=== PATIENT | male | born 1990 | race Caucasian/White ===

== ENCOUNTER 2024-07-05 00:05 | Emergency (ER) | payer SELFPAY ==
[2024-07-05 00:07] VITALS: BP 141/83; PULSE 85; RESP 18; TEMP 36.2; O2SAT 97; BMI 35.2
--- NOTE | 2024-07-05 00:38 | EKG12_ITS ---
Test Reason : DYSRHYTHMIA Blood Pressure : */* mmHG Vent. Rate : 77 BPM Atrial Rate : 77 BPM P-R Int : 188 ms QRS Dur : 108 ms QT Int : 366 ms P-R-T Axes : 50 35 17 degrees QTcB Int : 414 ms Normal sinus rhythm Normal ECG Confirmed by Adonis Pagan ([id number]), script editor YVONNE GHOTRA ([id number]) on 07/06/2024 10:21:44 AM Referred By: Confirmed By: Adonis Pagan
--- NOTE | 2024-07-05 00:38 | CT_ITS ---
PROCEDURE: SINUS/FACIAL BONE REASON FOR EXAM: Question nasal fracture TECHNIQUE: CT of the paranasal sinuses without contrast. COMPARISON: None. FINDINGS: Frontal: Frontal sinuses and frontoethmoidal recesses appear clear. Ethmoid: Thickening Sphenoid: Sphenoid sinuses and sphenoethmoidal recesses appear clear. Maxillary: Maxillary sinuses appear clear. The ostiomeatal units appear widely patent. Turbinates: Thickening of the nasal turbinates Nasal bone and septum: Nondisplaced fracture of the nasal bone with rightward deviation of the septum. Mastoids/Middle Ears: Clear at visualized levels. Visualized intracranial structures are unremarkable. CT/Sinus/Facial Bone IMPRESSION: 1. Nondisplaced fracture of the nasal bone 2. Mild thickening of the ethmoid air cells and nasal turbinates One or more dose reduction techniques were used (e.g., Automated exposure contr ol, adjustment of the mA and/or kV according to patient size, use of iterative reconstruction technique). Reading Location: [facility]
--- NOTE | 2024-07-05 03:28 | EDS_ITS ---
HPI History of Present Illness Chief Complaint: Other, Pain/Inj Informant: patient Narrative Narrative: Patient is a 34-year-old male who reports a past medical history of anxiety and depression as well as ADHD. He states that he was recently diagnosed with walk ing pneumonia. He states he had a coughing spell this evening which caused him to blackout and he fell forward striking his face. He states he had mild bleeding from his nose following the injury and has soft tissue swelling and concern for nasal fracture and therefore comes in for evaluation. [facility] Medical History (Updated 07/10/24 @ 05:[address] Alejandro Kaur, DO) Nicotine dependence ADHD Anxiety Depression Drug addiction Home Medications ?Medication ?Instructions ?Recorded ?Last Taken ?Type sulfamethoxazole 800 1 tab PO BID ##28 07/30/13 U nknown Rx mg-trimethoprim 160 mg tablet azithromycin 250 mg tablet See Rx Instructions PO .COM PLEX #6 07/05/24 Unknown Rx (Zithromax Z-Rohit) tabs escitalopram oxalate 20 mg tablet 10 mg PO DAILY 07/05 Unknown History (Lexapro) trazodone 50 mg tablet 50 mg PO QHS 07/05/24 Unknow n History Allergy/AdvReac Type Severity Reaction Status Date / Time No Known Allergies Allergy Verified 07/05/24 00:06 Surgical History (Updated 07/05/24 @ 00:17 by Cathleen Pizarro) History of back surgery History of surgery on arm Social History Smoking Status: Current every day smoker tobacco type: e-cigarettes ROS ROS ED Constitutional Constitutional ED: Denies chills or fever(s) Eyes Eyes: Denies blurry vision or change in vision ENT ENT ED: Reports rhinorrhea and other Details: Positive epistaxis ; Denies sore throat Cardiovascular Cardiovascular: Reports other Details: Positive syncope ; Denies chest pain Respiratory/Chest Respiratory/Chest: Reports cough; Denies dyspnea Gastrointestinal Gastrointestinal: Denies abdominal pain, diarrhea, nausea or vomiting Genitourinary Genitourinary ED: Denies dysuria Musculoskeletal Musculoskeletal: Denies neck pain Integumentary Denies Abrasions or rash Neurologic Neurologic: Denies headache(s) Psychiatric Psychiatric: Reports anxiety and depression Hematologic/Lymphatic Hematologic/Lymphatic: Denies easy bleeding or easy bruising Allergic/Immunologic Allergic/Immunologic ED: Denies mouth swelling or tongue swelling EXAM Physical Exam Const Vital Signs: 07/05/24 00:07 07/05/24 00:13 Temperature 97.1 F L Temperature Source Temporal Pulse Rate 85 Respiratory Rate 18 Respiratory Effort Normal Non-Labored Respiratory Pattern Normal Blood Pressure 141/83 H Blood Pressure Mean 102 Pulse Ox 97 Oxygen Delivery Method Room Air Positive well nourished and well developed General Appearance ED: well developed HEENT HEENT Narrative: There is soft tissue swelling to the anterior aspect of the nasal bridge. There is mild ecchymosis at the site as well consistent with history of trauma. There is dried blood along the right nare without active bleeding noted. No septal hematoma present. No signs of depressed or basilar skull fracture Eyes PERRL and EOMs intact bilaterally Eyes Narrative: No hyphema Neck supple Neck Narrative: No bony deformity or step-off of the cervical spine no midline tenderness to palpation Resp normal respiratory effort and clear to auscultation bilaterally Resp Narrative: No nasal flaring retractions tachypnea or accessory muscle use Cardio regular rate and regular rhythm Back/Spine Back/Spine Narrative: No bony deformity or step-off of the thoracic or lumbar spine no midline tenderness to palpation Extremity normal to inspection Neuro oriented x3, CN's II-XII intact bilaterally and no sensory deficits noted Sensorium / Orientation: alert Motor Exam: strength 5/5 throughout Psych mental status grossly normal Skin no rashes or lesions noted Skin Narrative: Soft tissue swelling ecchymosis to the bridge of the nose as documented above MDM MDM MDM Narrative Medical decision making narrative: Patient arrived to the ER with stable vitals and reported a recent diagnosis of walking pneumonia. He reported cough induced syncope which is a common side effect of aggressive coughing and therefore do not feel the need for a cardiac or syncope workup with blood work but only need for EKG to document no signs of ACS or cardiac dysrhythmia. With main concern for potential nasal fracture versus contusion is CT of the face was obtained. As he is neurologically intact without signs of depressed or basilar skull fracture I have low concern for a traumatic subarachnoid or subdural hemorrhage or skull fracture so I felt no need for head CT. The patient's EKG revealed sinus rhythm and CT scan did show nasal fracture but this is nondisplaced and closed and therefore there is no need for emergent maxillofacial or ENT consultation. Therefore patient can follow-up as an outpatient to discuss any need for potential surgical fixation but at this time is otherwise safe for discharge History & Record Review Discussion w/independent historian: Patient Radiography Diagnostic Testing: Clinical Impression(s) from Imaging Studies Facial/Sinus 07/05/24 00:38 IMPRESSION: 1. Nondisplaced fracture of the nasal bone 2. Mild thickening of the ethmoid air cells and nasal turbinates One or more dose reduction techniques were used (e.g., Automated exposure control, adjustment of the mA and/or kV according to patient size, use of iterative reconstruction technique). Reading Location: [facility] Discharge Plan Triage Chief Complaint: Other, Pain/Inj ED Provider: Alejandro Kaur Dx/Rx/DC Orders Clinical Impression: Walking pneumonia, Closed fracture nasal bone, Anxiety and depression, ADHD Instructions: When You Have Pneumonia, ED Nasal Contusion Prescriptions: New azithromycin [Zithromax Z-Rohit] 250 mg tablet See Rx Instructions .ROUTE .COMPLEX Qty: 6 0RF Rx Instructions: For 250 mg dose pack: take 500 mg today (day 1), then 250 mg for 4 days (days 2-5) No Action sulfamethoxazole-trimethoprim 1 TABLET tablet 1 tab PO BID Qty: 28 0RF escitalopram oxalate [Lexapro] 20 mg tablet 10 mg PO DAILY trazodone 50 mg tablet 50 mg PO QHS Primary Care Provider: Care Physician,No Primary Referrals: Care Physician,No Primary [Primary Care Provider] - Activity Restrictions/Additional Instructions: Please stop the Bactrim as your EKG displays a normal QTc and begin the Zithro max for improved coverage of atypical/walking pneumonia. Please login to your MyChart and if CT scan shows a fracture you can follow-up with ENT to discuss potential surgical intervention. Return to the ER should you have any further concerns Print Language: Tajik Disposition Disposition: Home, Self Care Discharge Date/Time: 07/05/24 03:37
[2024-07-05 03:35] VITALS: BP 113/97; PULSE 80; RESP 18; TEMP 36.8; O2SAT 98
== END 2024-07-05 03:37 | disposition home or self-care (01) ==
PROVIDERS: Emergency Provider Emergency Medicine; Visit Provider Emergency Medicine
DX: S02.2XXA Fracture of nasal bones, initial encounter for closed fracture (principal); W19.XXXA Unspecified fall, initial encounter; J18.9 Pneumonia, unspecified organism; F90.9 Attention-deficit hyperactivity disorder, unspecified type; F32.A Depression, unspecified; F41.9 Anxiety disorder, unspecified; Z79.899 Other long term (current) drug therapy; F17.290 Nicotine dependence, other tobacco product, uncomplicated
CPT/HCPCS: 70486; 93005; 99282